=== PATIENT | male | born 1980 | race Caucasian/White ===

== ENCOUNTER 2016-09-24 08:49 | Emergency (ER) | payer MEDICAID, OTHER ==
[~2016-09-24] VITALS: Ht 162.6 cm; Wt 68.0 kg
[2016-09-24 09:08] VITALS: Ht 162.6 cm; Wt 68.0 kg
[2016-09-24] MEDS ORDERED: HYDROmorphONE 1 MG/ML SYG IV STA (09:24)
[2016-09-24] MEDS ORDERED: SOD CHLORIDE 0.9% 1,000 ML IV STA (09:24)
[2016-09-24] MEDS ORDERED: ONDANSETRON 4 MG INJ IV STA (09:24)
[2016-09-24] MEDS ORDERED: CEFTRIAXONE 1 GM/50 ML (PMX) 50 ML IVPB STA (09:24)
[2016-09-24 11:02] LABS: ADD SCAN DIFF NO
[2016-09-24 11:08] LABS: BASOPHILS % 0.5 % (0.0-2.0); EOSINOPHILS # 0.2 10^3/ul (0.0-0.5); EOSINOPHILS % 2.4 % (0.0-7.0); HEMATOCRIT 47.1 % (42.0-52.0); HEMOGLOBIN 16.3 g/dl (14.0-18.0); LYMPHOCYTES # 1.5 10^3/ul (0.8-2.9); LYMPHOCYTES % 21.9 % (15.0-51.0); MEAN CORPUSCULAR HGB CONC 34.6 g/dl (32.0-37.0); MEAN CORPUSCULAR VOLUME 86.6 fl (82.0-101.0); MONOCYTE # 0.6 10^3/ul (0.3-0.9); MONOCYTES % 8.9 % (0.0-11.0); NEUTROPHIL # 4.4 10^3/ul (1.6-7.5); PLATELET COUNT 200 10^3/UL (140-415); RED BLOOD COUNT 5.44 10^6/ul (4.70-6.10); RED CELL DISTRIBUTION WIDTH 12.7 % (11.5-14.5); WHITE BLOOD COUNT 6.6 10^3/ul (4.8-10.8)
[2016-09-24 11:10] LABS: ADD UMIC NO; URINE BILIRUBIN (Dip) NEGATIVE (NEGATIVE); URINE BLOOD (Dip) NEGATIVE (NEGATIVE); URINE COLOR LT. YELLOW (YELLOW); URINE GLUCOSE (Dip) NEGATIVE (NEGATIVE); URINE KETONES (Dip) NEGATIVE (NEGATIVE); URINE LEUKOCYTE ESTERASE (Dip) NEGATIVE (NEGATIVE); URINE NITRITE (Dip) NEGATIVE (NEGATIVE); URINE TOTAL PROTEIN (Dip) NEGATIVE (NEGATIVE); URINE UROBILINOGEN (Dip) 0.2 E.U./dL (0.1-1.0)
[2016-09-24 11:19] LABS: ALBUMIN 4.8 g/dl (3.3-4.9)
[2016-09-24 11:20] LABS: POTASSIUM 3.8 mmol/L (3.5-5.1)
[2016-09-24 11:22] LABS: ALBUMIN/GLOBULIN RATIO 1.6; BILIRUBIN,INDIRECT 0.5 mg/dl (0-1.1); BILIRUBIN,TOTAL 0.5 mg/dl (0.2-1.3); CREATININE 0.74 mg/dl (0.61-1.24); TOTAL PROTEIN 7.8 g/dl (6.1-8.1)
[2016-09-24 11:23] LABS: CALCIUM 9.3 mg/dl (8.4-10.2)
[2016-09-24] MEDS ORDERED: ACETAMINOPHEN 500 MG TAB PO STA (13:04)
--- NOTE | 2016-09-24 13:16 | RADRPT ---
PROCEDURE: CT Abdomen and Pelvis without contrast. CLINICAL INDICATION: Abdominal pain TECHNIQUE: CT scan of the abdomen and pelvis was performed on a multidetector high-resolution CT s canner without intravenous contrast. Coronal and sagittal reformatted images were obtained from the axial source images. Images were reviewed on a high-resolution PACS workstation. The total exam CTD I equals 8mGy and the total exam DLP equals 506mGy-cm. One or more of the following dose reduction t echniques were used: Automated exposure control, Adjustment of the mA and/or kV according to patient size, and/or use of iterative reconstruction technique. COMPARISON: Abdominal CT 08/29/2014 FINDINGS: Evaluation of the solid organs is limited given the lack of intravenous contrast administration. Bibasilar atelectasis. The liver, pancreas, spleen, and adrenals are grossly unremarkable. No focal pericholecystic inflammatory changes. No hydronephrosis. No renal or ureteral stone. No bowel obstruction. Normal-caliber appendix. No significant retroperitoneal lymphadenopathy, ascites or evidence of pneumoperitoneum. Punctate right common iliac artery atherosclerosis is unchanged from prior. IMPRESSION: No acute intra-abdominal process identified. Normal-caliber appendix. No evidence of bowel obstruction. No renal or ureteral stone. RPTAT: AA .Jose Spivey MD, Date Time Electronically viewed and signed by .Jose Spivey MD, on 09/24/2016 13:16 .T/
[2016-09-24] MEDS ORDERED: IBUP-1542 PO (13:41)
[2016-09-24] MEDS ORDERED: CIPR500T4 PO (13:41)
[2016-09-24] MEDS ORDERED: HYDR-902 PO (13:41)
--- NOTE | 2016-09-24 13:45 | ERD ---
ER Documentation Chief Complaint Date/Time DATE: 09/24/16 TIME: 13:41 Chief Complaint FOX FLANK PAIN,NAUSEA.HX OF KIDNEY DSE HPI This a 36-year-old male complains of bilateral flank pain with dysuria and urinary frequency for the past 2 days. Patient thinks he has a kidney infection. The patient complains of burning in the penile shaft during urination with frequent urination no fever no suprapubic pain no abdominal pain. Is also complaining of bilateral flank pain described as dull and constant somewhat worse with movement. No fever no hematuria no chest pain or shortness of breath diarrhea or vomiting ROS All systems reviewed and are negative except as per history of present illness. Medications Home Meds Active Scripts Ibuprofen* (Motrin*) 600 Mg Tab, 600 MG PO Q8, #30 TAB Prov:MARITO CHRISTINE DO 09/24/16 Hydrocodone/Acetaminophen ([place] 10-325 Tablet) 1 Each Tablet, 1 TAB PO Q6H Y for PAIN, #20 TAB Prov:MARITO CHRISTINE DO 09/24/16 Ciprofloxacin Hcl* (Ciprofloxacin Hcl*) 500 Mg Tablet, 500 MG PO BID for 7 Days , TAB Prov:MARITO CHRISTINE DO 09/24/16 Allergies Allergies: Coded Allergies: No Known Allergy (Unverified , 08/29/14) PMhx/Soc History of Surgery: No Anesthesia Reaction: No Hx Neurological Disorder: No Hx Respiratory Disorders: No Hx Cardiac Disorders: No Hx Psychiatric Problems: No Hx Miscellaneous Medical Probl: Yes (HTN) Hx Alcohol Use: No Hx Substance Use: No Hx Tobacco Use: No Smoking Status: Never smoker FmHx Family History: No coronary disease Physical Exam Vitals Vital Signs Date Time Temp Pulse Resp B/P Pulse Ox O2 Delivery O2 Flow Rate FiO2 09/24/16 11:30 97.8 60 14 100/61 98 Room Air 09/24/16 09:08 97.0 65 18 116/76 98 Physical Exam Const: Well-developed, well-nourished Head: Atraumatic, normocephalic Eyes: Normal Conjunctiva, PERRLA, EOMI, normal sclera, no nystagmus ENT: Normal External Ears, Nose and Mouth, moist mucus membranes. Neck: Full range of motion. No meningismus, no lymphadenopathy. Resp: Clear to auscultation bilaterally, no wheezing, rhonchi, rales Cardio: Regular rate and rhythm, no murmurs, S1 S2 present Abd: Soft, non tender x 4, non distended. Normal bowel sounds, no guarding or rebound, no pulsitile abdominal masses or bruits Skin: No petechiae or rashes, no ecchymosis , no maculopapular rash Back: Mild bilateral CVA tenderness Ext: No cyanosis, or edema, FROM x 4, normal inspection, neurovascularly intact x 4 Neur: Awake and alert, STR 5/5 x 4, sensation intact x 4, no focal findings, cerebellum intact Psych: Normal Mood and Affect Result Diagram: 09/24/16 1020 09/24/16 1020 Results 24 hrs Laboratory Tests Test 09/24/16 10:20 White Blood Count 6.610^3/ul Red Blood Count 5.4410^6/ul Hemoglobin 16.3g/dl Hematocrit 47.1% Mean Corpuscular Volume 86.6fl Mean Corpuscular Hemoglobin 30.0pg Mean Corpuscular Hemoglobin Concent 34.6g/dl Red Cell Distribution Width 12.7% Platelet Count 56720^3/UL Mean Platelet Volume 11.0fl Neutrophils % 66.0% Lymphocytes % 21.9% Monocytes % 8.9% Eosinophils % 2.4% Basophils % 0.5% Nucleated Red Blood Cells % 0.0/100WBC Neutrophils # 4.410^3/ul Lymphocytes # 1.510^3/ul Monocytes # 0.610^3/ul Eosinophils # 0.210^3/ul Basophils # 0.010^3/ul Nucleated Red Blood Cells # 0.010^3/ul Urine Color LT. YELLOW Urine Clarity CLEAR Urine pH 5.5 Urine Specific [place] 1.025 Urine Ketones NEGATIVE Urine Nitrite NEGATIVE Urine Bilirubin NEGATIVE Urine Urobilinogen 0.2 E.U./dL Urine Leukocyte Esterase NEGATIVE Urine Hemoglobin NEGATIVE Urine Glucose NEGATIVE% Urine Total Protein NEGATIVE Sodium Level 144mmol/L Potassium Level 3.8mmol/L Chloride Level 100mmol/L Carbon Dioxide Level 31mmol/L Anion Gap 17 Blood Urea Nitrogen 14mg/dl Creatinine 0.74mg/dl Glucose Level 97mg/dl Calcium Level 9.3mg/dl Total Bilirubin 0.5mg/dl Direct Bilirubin 0.00mg/dl Indirect Bilirubin 0.5mg/dl Aspartate Amino Transf (AST/SGOT) 27IU/L Alanine Aminotransferase (ALT/SGPT) 43IU/L Alkaline Phosphatase 54IU/L Total Protein 7.8g/dl Albumin 4.8g/dl Globulin 3.00g/dl Albumin/Globulin Ratio 1.60 Current Medications Medications (Trade) Dose Ordered Sig/Efraín Route PRN Reason Start Time Stop Time Status Last Admin Dose Admin Sodium Chloride (NS) 1,000 ml @ 1,000 mls/hr Q1H STAT IV 09/24/16 09:24 09/24/16 10:23 DC 09/24/16 10:24 Hydromorphone HCl (Dilaudid) 1 mg ONCE STAT IV 09/24/16 09:24 09/24/16 09:26 DC 09/24/16 10:25 Ondansetron HCl 4 mg 4 mg ONCE STAT IV 09/24/16 09:24 09/24/16 09:26 DC 09/24/16 10:24 Ceftriaxone Sodium (Rocephin) 50 ml @ 100 mls/hr ONCE STAT IVPB 09/24/16 09:24 09/24/16 09:53 DC 09/24/16 10:25 Acetaminophen (Tylenol Tab) 1,000 mg ONCE STAT PO 09/24/16 13:04 09/24/16 13:05 DC 09/24/16 13:37 Procedures/MDM PROCEDURE: CT Abdomen and Pelvis without contrast. CLINICAL INDICATION: Abdominal pain TECHNIQUE: CT scan of the abdomen and pelvis was performed on a multidetector high-resolution CT scanner without intravenous contrast. Coronal and sagittal reformatted images were obtained from the axial source images. Images were reviewed on a high-resolution PACS workstation. The total exam CTDI equals 8mGy and the total exam DLP equals 506mGy-cm. One or more of the following dose reduction techniques were used: Automated exposure control, Adjustment of the mA and/or kV according to patient size, and/or use of iterative reconstruction technique. COMPARISON: Abdominal CT 08/29/2014 FINDINGS: Evaluation of the solid organs is limited given the lack of intravenous contrast administration. Bibasilar atelectasis. The liver, pancreas, spleen, and adrenals are grossly unremarkable. No focal pericholecystic inflammatory changes. No hydronephrosis. No renal or ureteral stone. No bowel obstruction. Normal-caliber appendix. No significant retroperitoneal lymphadenopathy, ascites or evidence of pneumoperitoneum. Punctate right common iliac artery atherosclerosis is unchanged from prior. IMPRESSION: No acute intra-abdominal process identified. Normal-caliber appendix. No evidence of bowel obstruction. No renal or ureteral stone. RPTAT: AA .Jose Spivey MD, MD Date Time Electronically viewed and signed by .Jose Spivey MD, on 09/24/2016 13:16 .T/ CC: MARITO CHRISTINE DO Patient has no UTI blood work is normal. No signs of kidney stones or pyelonephritis. We will treat patient for urethritis musculoskeletal pain Departure Diagnosis: Primary Impression: Flank pain Additional Impression: Urethritis Condition: Stable Patient Instructions: Urethritis in Men, Flank Pain, Uncertain Cause MARITO CHRISTINE DO Sep 24, 2016 13:45
[2016-09-24 13:59] VITALS: BP 117/71; PULSE 53; RESP 14; TEMP 98.1
== END 2016-09-24 14:04 | disposition home or self-care (01) ==
LOC: E/R 08:49
DX: R10.9 Unspecified abdominal pain (principal); N34.2 Other urethritis; I10 Essential (primary) hypertension
CPT/HCPCS: 36415; 74176; 80053; 81003; 85025; 87086; 96365; 96375; J0696; J1170; J2405; J7030; Z7502; Z7610

== ENCOUNTER 2016-11-26 15:32 | Emergency (ER) | payer OTHER ==
[~2016-11-26] VITALS: Ht 165.1 cm; Wt 69.5 kg
[~2016-11-26 15:32] MED LIST: CIPR500T4 PO; HYDR-902 PO; IBUP-1542 PO
[2016-11-26 15:39] VITALS: Ht 165.1 cm; Wt 69.5 kg
[2016-11-26] MEDS ORDERED: ONDANSETRON (ODT) 4 MG TAB ODT STA (17:49)
[2016-11-26] MEDS ORDERED: HYDROCODONE/APAP (5/325) TAB PO ONE (18:00)
[2016-11-26 18:11] LABS: URINE BLOOD (Dip) POC Negative (NEGATIVE)
[2016-11-26 18:34] LABS: ADD SCAN DIFF NO
[2016-11-26 18:36] LABS: BASOPHILS % 0.4 % (0.0-2.0); EOSINOPHILS # 0.3 10^3/ul (0.0-0.5); EOSINOPHILS % 3.5 % (0.0-7.0); HEMATOCRIT 46.5 % (42.0-52.0); HEMOGLOBIN 15.9 g/dl (14.0-18.0); LYMPHOCYTES # 2.1 10^3/ul (0.8-2.9); LYMPHOCYTES % 27.2 % (15.0-51.0); MEAN CORPUSCULAR HEMOGLOBIN 29.3 pg (29.0-33.0); MEAN CORPUSCULAR HGB CONC 34.2 g/dl (32.0-37.0); MEAN CORPUSCULAR VOLUME 85.8 fl (82.0-101.0); MEAN PLATELET VOLUME 10.8 fl (7.4-10.4); MONOCYTE # 0.5 10^3/ul (0.3-0.9); MONOCYTES % 6.6 % (0.0-11.0); NEUTROPHIL # 4.7 10^3/ul (1.6-7.5); NEUTROPHILS % 61.9 % (39.0-77.0); PLATELET COUNT 190 10^3/UL (140-415); RED BLOOD COUNT 5.42 10^6/ul (4.70-6.10); RED CELL DISTRIBUTION WIDTH 12.8 % (11.5-14.5); WHITE BLOOD COUNT 7.6 10^3/ul (4.8-10.8)
[2016-11-26 19:09] LABS: BILIRUBIN,INDIRECT 0.2 mg/dl (0-1.1); BILIRUBIN,TOTAL 0.2 mg/dl (0.2-1.3); CALCIUM 9.1 mg/dl (8.4-10.2); CREATININE 0.79 mg/dl (0.61-1.24); POTASSIUM 3.9 mmol/L (3.5-5.1); TOTAL PROTEIN 7.5 g/dl (6.1-8.1)
--- NOTE | 2016-11-26 19:50 | RADRPT ---
PROCEDURE: CT Abdomen and Pelvis without contrast. CLINICAL INDICATION: Pain. TECHNIQUE: CT scan of the abdomen and pelvis was performed on a multidetector slice CT scanner. No intravenous contrast material was utilized. Sagittal and coronal reformatted images were obtained fr om the axial source images. Images were reviewed on a high-resolution PACS workstation. Exam CTDlvol = 7.8 mGy and DLP = 494 Gy-cm. One of the following 3 dose reduction techniques were used: Automate d exposure control; adjustment of the mA and/or kV according to patient size; or use of iterative re construction technique. COMPARISON: None. FINDINGS: There is no obstruction or ileus. The appendix is well visualized and normal in size. There is no e vidence for diverticulitis. There is no free fluid. The liver is overall normal in size. No intrahepatic lesions are identified. The gallbladder is norm al in appearance. There is no definite biliary ductal dilation. Pancreas is normal in appearance. Th e spleen is unremarkable.. There are no adrenal masses. The aorta is normal caliber. Kidneys are normal in appearance without hydronephrosis, mass or calculus. There is no perinephric c ollection. Ureters are of normal caliber and without evidence for an obstructing calculus. The urin edith bladder is normal in appearance.. Limited evaluation of the lung bases is unremarkable. The bones are unremarkable. IMPRESSION: 1. No acute abnormality. RPTAT: HMVK .Jerry Perera MD, MD Date Time Electronically viewed and signed by .Jerry Perera MD, MD on 11/26/2016 19:49 .K/
--- NOTE | 2016-11-26 20:03 | ERA ---
ER Documentation Chief Complaint Date/Time DATE: 11/26/16 TIME: 19:57 Chief Complaint BIB SELF C/O VOMITING AND NAUSEA X 2 MONTHS. SENT BY PMD FOR FURTHER EVAL HPI This is a 28-year-old male presenting with a chief complaint of abdominal pain 2 months. Patient was sent by his PCP to be further evaluated with imaging modalities. Describes the pain as generalized and intermittent. Denies constipation, diarrhea, fever, nausea, dysuria, hematuria or change in diet or activities. No aggravating or alleviating factors described. Patient states that the pain comes once to twice a day and sometimes lasts for more than 1 day. Patient states he has been taking Pepto-Bismol without relief. I reviewed the nursing notes and they are consistent with the history given. ROS All systems reviewed and are negative except as per history of present illness. Medications Home Meds Active Scripts Ibuprofen* (Motrin*) 600 Mg Tab, 600 MG PO Q8, #30 TAB Prov:KYARA CHRISTINESTJOSEFINAS A. DO 09/24/16 Hydrocodone/Acetaminophen ([place] 10-325 Tablet) 1 Each Tablet, 1 TAB PO Q6H Y for PAIN, #20 TAB Prov:KYARA CHRISTINESTOLOS A. DO 09/24/16 Ciprofloxacin Hcl* (Ciprofloxacin Hcl*) 500 Mg Tablet, 500 MG PO BID for 7 Days , TAB Prov:YKARA CHRISTINESTJOSEFINAS A. DO 09/24/16 Allergies Allergies: Coded Allergies: No Known Allergy (Unverified , 08/29/14) PMhx/Soc History of Surgery: No Anesthesia Reaction: No Hx Neurological Disorder: No Hx Respiratory Disorders: No Hx Cardiac Disorders: No Hx Psychiatric Problems: No Hx Miscellaneous Medical Probl: Yes (HTN) Hx Alcohol Use: No Hx Substance Use: No Hx Tobacco Use: No Smoking Status: Never smoker Physical Exam Vitals Vital Signs Date Time Temp Pulse Resp B/P Pulse Ox O2 Delivery O2 Flow Rate FiO2 11/26/16 15:39 97.0 61 18 131/78 99 Physical Exam Const: [] Head: Atraumatic Eyes: Normal Conjunctiva ENT: Normal External Ears, Nose and Mouth. Neck: Full range of motion..~ No meningismus. Resp: Clear to auscultation bilaterally Cardio: Regular rate and rhythm, no murmurs Abd: Soft, non tender, non distended. Normal bowel sounds Skin: No petechiae or rashes Back: No midline or flank tenderness Ext: No cyanosis, or edema Neur: Awake and alert Psych: Normal Mood and Affect Result Diagram: 11/26/16 1800 11/26/16 1800 Results 24 hrs Laboratory Tests Test 11/26/16 18:00 11/26/16 18:15 White Blood Count 7.610^3/ul Red Blood Count 5.4210^6/ul Hemoglobin 15.9g/dl Hematocrit 46.5% Mean Corpuscular Volume 85.8fl Mean Corpuscular Hemoglobin 29.3pg Mean Corpuscular Hemoglobin Concent 34.2g/dl Red Cell Distribution Width 12.8% Platelet Count 19652^3/UL Mean Platelet Volume 10.8fl Neutrophils % 61.9% Lymphocytes % 27.2% Monocytes % 6.6% Eosinophils % 3.5% Basophils % 0.4% Nucleated Red Blood Cells % 0.0/100WBC Neutrophils # 4.710^3/ul Lymphocytes # 2.110^3/ul Monocytes # 0.510^3/ul Eosinophils # 0.310^3/ul Basophils # 0.010^3/ul Nucleated Red Blood Cells # 0.010^3/ul Sodium Level 141mmol/L Potassium Level 3.9mmol/L Chloride Level 104mmol/L Carbon Dioxide Level 29mmol/L Anion Gap 12 Blood Urea Nitrogen 14mg/dl Creatinine 0.79mg/dl Glucose Level 91mg/dl Calcium Level 9.1mg/dl Total Bilirubin 0.2mg/dl Direct Bilirubin 0.00mg/dl Indirect Bilirubin 0.2mg/dl Aspartate Amino Transf (AST/SGOT) 31IU/L Alanine Aminotransferase (ALT/SGPT) 60IU/L Alkaline Phosphatase 53IU/L Total Protein 7.5g/dl Albumin 5.0g/dl Globulin 2.50g/dl Albumin/Globulin Ratio 2.00 Bedside Urine pH (LAB) 5.5 Bedside Urine Protein (LAB) Trace Bedside Urine Glucose (UA) Negative Bedside Urine Ketones (LAB) Negative Bedside Urine Blood Negative Bedside Urine Nitrite (LAB) Negative Bedside Urine Leukocyte Esterase (L Negative Current Medications Medications (Trade) Dose Ordered Sig/Efraín Route PRN Reason Start Time Stop Time Status Last Admin Dose Admin Acetaminophen/ Hydrocodone Bitart ([place] (5/325)) 1 tab ONCE ONCE PO 6/20/17 18:00 11/26/16 18:01 DC 11/26/16 17:58 Ondansetron HCl (Zofran Odt) 4 mg ONCE STAT ODT 11/26/16 17:49 11/26/16 17:52 DC 11/26/16 17:58 Procedures/MDM Patient was evaluated and worked up for abdominal discomfort as described in history. Physical exam was unremarkable. Patient was given [place] in the ED with mild to moderate symptomatic relief. The workup included urine dip, CBC, CMP, lipase and CT of abdomen pelvis without contrast. Labs were unremarkable. The CT was read by the radiologist given the following impression: IMPRESSION: 1. No acute abnormality. The current most likely diagnosis is abdominal pain of unknown etiology, possible irritable bowel syndrome. The treatment plan will thus include increased fluids and fiber diet for possible symptomatic relief minute and following up with PCP. At this time I do not suspect appendicitis, intestinal ischemia, peritonitis, intestinal obstruction, perforated viscus, acute pancreatitis, cholangitis, cholelithiasis, mechanical obstruction, AAA; as well as testicular torsion, epididymitis, prostatitis, or UTI. On repeat exam, the abdomen remains unremarkable. The patient is well appearing , and tolerates PO. I have spoke with the patient regarding their condition and future management. They have verbally responded that they understand their status and treatment plan. The patients vitals are stable, and their current condition is appropriate for discharge. The patient will be given discharge instructions with return precautions. Departure Diagnosis: Primary Impression: Abdominal pain Qualified Code: R10.84 - Generalized abdominal pain Additional Impression: Irritable bowel syndrome Qualified Code: K58.9 - Irritable bowel syndrome, unspecified type Condition: Stable Additional Instructions: Follow up with your PCP within the next 1-3 days for a more thorough evaluation and a possible referral to a specialist. Return the the emergency department immediately if symptoms worsen or change. If you have any questions regarding medications, ask your pharmacist or us before you leave. If any adverse reactions occur while taking your medications, discontinue the treatment and return to the emergency department immediately. Take your medications as directed, and complete the entire course of treatment. SABRINA CASANOVA PA-C Nov 26, 2016 20:03
[2016-11-26] MEDS ORDERED: ACET325T33 PO (20:05)
[2016-11-26] MEDS ORDERED: ONDA4TAB14 PO (20:05)
[2016-11-26 20:25] VITALS: BP 127/70; PULSE 48; RESP 16; TEMP 97.8
== END 2016-11-26 20:26 | disposition home or self-care (01) ==
LOC: FTE 15:32
DX: R10.84 Generalized abdominal pain (principal); K58.9 Irritable bowel syndrome, unspecified; I10 Essential (primary) hypertension
CPT/HCPCS: 74176; 80053; 81003; 85025; Z7502; Z7610

== ENCOUNTER 2017-03-29 12:15 | Emergency (ER) | payer OTHER ==
[~2017-03-29] VITALS: Ht 162.6 cm; Wt 72.0 kg
[~2017-03-29 12:15] MED LIST changes: +ACET325T33 PO; +ONDA4TAB14 PO
[2017-03-29 12:18] VITALS: Ht 162.6 cm; Wt 72.0 kg
[2017-03-29] MEDS ORDERED: ONDANSETRON (ODT) 4 MG TAB ODT STA (14:41)
[2017-03-29] MEDS ORDERED: ONDA4TAB14 PO (14:51)
[2017-03-29] MEDS ORDERED: BISM-34 PO (14:51)
[2017-03-29] MEDS ORDERED: LIDOCAINE/MYLANTA 40 ML BTL PO ONE (15:00)
[2017-03-29 15:10] VITALS: BP 123/82; PULSE 62; RESP 16; TEMP 98.4
--- NOTE | 2017-03-29 16:44 | ERD ---
ER Documentation Chief Complaint Chief Complaint pt bib self with c/o vomiting since last night at 11 pm HPI Patient is a 36-year-old male presenting to the emergency department with complaints of nonbilious, nonbloody emesis which began yesterday at 11 PM. The patient has had 7 episodes since then. Associated symptoms include intermittent vertigo, but he is not experiencing this now. Is also had some mild diarrhea. He admits to chills. He took Pepto-Bismol at home with mild relief of symptoms. Last episode of vomiting was approximately 2 hours ago. No recent travel, no fevers, he denies other symptoms currently. ROS All systems reviewed and are negative except as per history of present illness. Medications Home Meds Active Scripts Bismuth Subsalicylate* (Bismuth Subsalicylate*) 262 Mg/15 Ml Oral.susp, 15 ML PO Q6 Y for DIARRHEA, #120 ML Prov:GLENN CAMARILLO PA-C 03/29/17 Ondansetron (Ondansetron Odt) 4 Mg Tab.rapdis, 4 MG PO Q6H Y for NAUSEA AND/OR VOMITING, #10 TAB Prov:GLENN CAMARILLO PA-C 03/29/17 Ondansetron (Ondansetron Odt) 4 Mg Tab.rapdis, 4 MG PO Q6H Y for NAUSEA AND/OR VOMITING, #10 TAB Prov:SABRINA CASANOVA PA-C 11/26/16 Acetaminophen* (Tylenol*) 325 Mg Tablet, 1 TAB PO Q8 Y for PAIN AND OR ELEVATED TEMP, #20 TAB Prov:SABRINA CASANOVA PA-C 11/26/16 Ibuprofen* (Motrin*) 600 Mg Tab, 600 MG PO Q8, #30 TAB Prov:MARITO CHRISTINE DO 09/24/16 Hydrocodone/Acetaminophen ([place] 10-325 Tablet) 1 Each Tablet, 1 TAB PO Q6H Y for PAIN, #20 TAB Prov:MARITO CHRISTINE DO 09/24/16 Ciprofloxacin Hcl* (Ciprofloxacin Hcl*) 500 Mg Tablet, 500 MG PO BID for 7 Days , TAB Prov:MARITO CHRISTINE DO 09/24/16 Allergies Allergies: Coded Allergies: No Known Allergy (Unverified , 08/29/14) PMhx/Soc History of Surgery: No Anesthesia Reaction: No Hx Neurological Disorder: No Hx Respiratory Disorders: No Hx Cardiac Disorders: No Hx Psychiatric Problems: No Hx Miscellaneous Medical Probl: Yes (HTN) Hx Alcohol Use: No Hx Substance Use: No Hx Tobacco Use: No Smoking Status: Never smoker Physical Exam Vitals Vital Signs Date Time Temp Pulse Resp B/P Pulse Ox O2 Delivery O2 Flow Rate FiO2 03/29/17 15:10 98.4 62 16 123/82 99 Room Air 03/29/17 12:18 98.9 60 16 129/82 98 Physical Exam Const: Nontoxic, well-appearing male in no acute distress. Head: Atraumatic Eyes: Normal Conjunctiva ENT: Normal External Ears, Nose and Mouth. Neck: Full range of motion..~ No meningismus. Resp: Clear to auscultation bilaterally Cardio: Regular rate and rhythm, no murmurs Abd: Soft, non tender, non distended. Normal bowel sounds. No rebound tenderness or guarding. No McBurney's point tenderness. Skin: No petechiae or rashes Back: No midline or flank tenderness Ext: No cyanosis, or edema Neur: Awake and alert Psych: Normal Mood and Affect Results 24 hrs Current Medications Medications (Trade) Dose Ordered Sig/Efraín Route PRN Reason Start Time Stop Time Status Last Admin Dose Admin Miscellaneous Medication (Gi Cocktail (2)) 40 ml ONCE ONCE PO 03/29/17 15:00 03/29/17 15:01 DC 03/29/17 14:49 Ondansetron HCl (Zofran Odt) 4 mg ONCE STAT ODT 03/29/17 14:41 03/29/17 14:42 DC 03/29/17 14:49 Procedures/MDM 36-year-old male presents to the emergency department with complaints of nausea , vomiting, and diarrhea. Upon review of the patient's medical records, he was here approximately 3 months ago and had a full workup including laboratory studies and CT abdominal and pelvis scan which were unremarkable. Today, physical examination was essentially unremarkable. Low suspicion for acute abdomen. I do not feel that imaging or further workup was required at this time as the patient had no tenderness on exam. He had stable vital signs. He was afebrile he likely has nausea, vomiting, and diarrhea secondary to a viral gastroenteritis. The patient was treated in the department with medication and he was feeling improved prior to discharge. He was given prescriptions to go home with and I believe he was appropriate for outpatient management with primary care follow-up. He was advised to return immediately for any new or worsening symptoms and he demonstrated good understanding of this information. Departure Diagnosis: Primary Impression: Nausea, vomiting, and diarrhea Condition: Fair Patient Instructions: Nausea and Vomiting-Adult, Diet, Vomiting Or Diarrhea [ 6Yr-Adult] [facility] Usted se germain hecho un examen mdico de control que le indica que no est en nomi condicin que requiera tratamiento urgente en el Departamento de Emergencia. Un estudio ms profundo y el tratamiento de martinez condicin pueden esperar sin ningn riesgo hasta que usted sea atendida/o en el consultorio de martinez mdico o nomi cl garima. Es responsabilidad suya arreglar nomi rod para el seguimiento del becca. MANEJO DE CONDICIONES NO URGENTES EN EL FUTURO 1) Si usted tiene un mdico de atencin primaria: Usted debera llamar a martinez mdico de atencin primaria antes de venir al departamento de emergencia. Despus de las horas de consultorio, martinez doctor o martinez asociado/a est disponible por telfono. El mdico o enfermero de percy en el servicio telefnico puede asesorarle por linda medio para atender el problema, o becca contrario se puede programar nomi rod. 2) Si usted no tiene un mdico de atencin primaria: Llame al mdico o clnica de referencia que aparece abajo freddy las horas de consultorio para hacer nomi rod para que le vean. CLINICAS: [facility] [phone] [facility] 811 [phone] [facility] 889 [phone] [address] [facility] [phone] [facility]. [place] [id number] [phone] [facility]. [phone] [address] Additional Instructions: No mas mejor en 2-3 sharp, regresar. Mas peor en 24 horas, regresear rapidamente. Ir a doctor primario en 1-2 sharp. Usar instrucciones cuando fabby medicamento. GLENN CAMARILLO PA-C Mar 29, 2017 16:44
== END 2017-03-29 15:00 | disposition home or self-care (01) ==
LOC: FTE 12:15
DX: R11.2 Nausea with vomiting, unspecified (principal); R19.7 Diarrhea, unspecified; I10 Essential (primary) hypertension
CPT/HCPCS: Z7502; Z7610; 99283

== ENCOUNTER 2017-11-20 16:11 | Emergency (ER) | END 2017-11-20 19:27 | disposition home or self-care (01) ==